=== PATIENT | female | born 2000 | race Caucasian/White ===

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

== ENCOUNTER 2024-02-18 17:05 | Outpatient (REF) | payer MEDICAID, SELFPAY ==
--- NOTE | 2024-02-18 16:25 | PAPFT_PTH ---
PATIENT: Liana Delatorre LOC: [facility] U#:[id number] AGE/SX: 24/F ROOM: RE02/18/[address]: Carmen Mills : 2000 BED: DIS: 02/18/2024 SPEC #: [id number] RECD: 02/18/24 18:33 STATUS: MATTHIAS REBong #: [id number] LING: 02/18/24 16:[address]: Carmen Mills DEPT: [facility] Cytology RECD BY: Annmarie Burnham ENTERED: 02/18/24 18:33 SP TYPE: PAPFT AIDA DR: Unknown,Unknown Tissues: 1 - CX/ENDOCX FOR PAP SMEARS Procedures: PAP THIN PREP/[facility] Screening Comments: [id number]
== END 2024-02-18 17:06 | disposition home or self-care (01) ==
LOC: LBN 17:05
PROVIDERS: Visit Provider Physician Assistant
DX: Z12.4 Encounter for screening for malignant neoplasm of cervix (principal)
CPT/HCPCS: 88142

== ENCOUNTER 2024-08-06 13:02 | Outpatient (REF) | payer MEDICAID, SELFPAY ==
[2024-08-06 19:11] LABS: Abs Immature Grans 0.01 10^3/uL (0.0-0.06); Absolute Basophil Count 0.02 10^3/uL (0.0-0.2); Absolute Eosinophil Count 0.11 10^3/uL (0.0-0.7); Absolute Lymphocyte Count 1.97 10^3/uL (1.2-3.4); Absolute Monocyte Count 0.29 10^3/uL (0.1-0.8); Absolute Neutrophil Count 3.52 10^3/uL (1.2-6.7); Basophils % 0.3 %; Eosinophils % 1.9 %; HGB 11.6 g/dL (11.2-15.7); Immature Grans % 0.2 %; Lymphocytes % 33.3 %; MCH 26.7 pg (27.0-33.0); MCHC 31.4 % (32.0-36.0); MCV 85 fL (80-95); MPV 9.7 fL (8.0-11.0); Monocytes % 4.9 %; Neutrophils % 59.4 %; Platelet Count 258 10^3/uL (130-400); RBC 4.35 10^6/uL (3.93-5.22); RDW 13.4 % (11.7-14.6); RDW-SD 41.4 fL; WBC 5.92 10^3/uL (4.4-10.8)
[2024-08-06 19:31] LABS: Iron 40 ug/dL (50-170); Total Iron Binding Capacity 307 ug/dL (250-450)
[2024-08-06 19:47] LABS: ALT 20 U/L (14-59); AST 12 U/L (15-37); Albumin 3.7 g/dL (3.4-5.0); Alkaline Phosphatase 106 U/L (46-116); Anion Gap 6.7 mmol/L (3-11); BUN 14 mg/dL (7-18); Bilirubin, Total 0.32 mg/dL (0.2-1.0); CO2 28.3 mmol/L (21.0-32.0); CREATININE 1.4 mg/dL (0.55-1.02); Calcium 9.5 mg/dL (8.5-10.1); Calculated LDL 88 mg/dL (<100); Chloride 107 mmol/L (98-107); Cholesterol 169 mg/dL (<200); Estimated GFR 54.55 (mL/min/1.73m2); Ferritin 22 ng/mL (8-252); Folate 17.3 ng/mL (8.6-20.0); Glucose 92 mg/dL (74-106); HDL Cholesterol 41 mg/dL (40-60); Potassium 4.1 mmol/L (3.5-5.1); Sodium 142 mmol/L (136-145); TSH (W/Ref FT4) 1.29 uIU/mL (0.36-3.74); Triglyceride 202 mg/dL (<150); Vitamin B12 794 pg/mL (193-986); Vitamin D 25 Total 33.1 ng/mL (30-100)
== END 2024-08-06 13:03 | disposition home or self-care (01) ==
LOC: NCHCN 13:02
PROVIDERS: Visit Provider Physician Assistant
DX: F41.9 Anxiety disorder, unspecified (principal)
CPT/HCPCS: 80053; 80061; 82306; 82607; 82728; 82746; 83540; 83550; 83735; 84443; 85025

== ENCOUNTER 2025-07-14 18:39 | Outpatient (REF) | payer MEDICAID, SELFPAY ==
[2025-07-14 21:50] LABS: Anion Gap 5.6 mmol/L (3-11); BUN 19 mg/dL (7-18); CO2 31.4 mmol/L (21.0-32.0); Calcium 9.3 mg/dL (8.5-10.1); Chloride 103 mmol/L (98-107); Estimated GFR 49.91 (mL/min/1.73m2); Glucose 132 mg/dL (74-106); Potassium 4.2 mmol/L (3.5-5.1); Sodium 140 mmol/L (136-145)
[2025-07-14 22:57] LABS: COMMENT (LAB VIEW ONLY) 95.48 mg/dL; Microalb ug/mg Crea 6.4 ug/mg Cr
== END 2025-07-14 18:40 | disposition home or self-care (01) ==
LOC: NCHCN 18:39
PROVIDERS: Visit Provider Physician Assistant
DX: R79.89 Other specified abnormal findings of blood chemistry (principal)
CPT/HCPCS: 80048; 82043; 82570